=== PATIENT | female | born 1975 | race Native Hawaiian/Other Pacific Islander ===

== ENCOUNTER 2018-08-28 21:04 | Emergency (ER) | payer OTHER ==
[~2018-08-28] VITALS: Ht 162.6 cm; Wt 59.0 kg
[2018-08-28 21:25] VITALS: BP 146/83; TEMP 98.3
== END 2018-08-29 00:13 | disposition home or self-care (01) ==
LOC: ED 21:04
PROC: 0HQFXZZ Repair Right Hand Skin, External Approach (ICD-10-PCS; principal; 2018-08-28)
PROC: 0H9FXZZ Drainage of Right Hand Skin, External Approach (ICD-10-PCS; 2018-08-28)
DX: S60.021A Contusion of right index finger without damage to nail, initial encounter (principal); S61.210A Laceration without foreign body of right index finger without damage to nail, initial encounter; W17.89XA Other fall from one level to another, initial encounter; Y93.55 Activity, bike riding
CPT/HCPCS: 90471; 90715; 96372; 99283; J2001; J2175; J2405